=== PATIENT | male | born 1960 | race Caucasian/White ===

== ENCOUNTER 2019-01-09 14:33 | Emergency (ER) | payer OTHER ==
[2019-01-09] MEDS ORDERED: LIDOCAINE 1% MPF 5 ML VIAL ONE (15:14)
--- NOTE | 2019-01-09 16:04 | ER ---
Nurse's Notes [facility] Name: Kwan Mac Age: 58 yrs Sex: Male : 1960 Arrival Date: 01/09/2019 Time: 14:37 Bed 27 Private MD: Juanjo Sr Diagnosis: Laceration without foreign body of left index finger without damage to nail Presentation: 01/09 14:45 Presenting complaint: Patient states: I cut my left index finger with the hedger, la1 bleeding controlled. Transition of care: patient was not received from another setting of care. Onset of symptoms was January 09, 2019. Risk Assessment: Do you want to hurt yourself or someone else? Patient reports no desire to harm self or others. Initial Sepsis Screen: Does the patient meet any 2 criteria? No. Patient's initial sepsis screen is negative. Does the patient have a suspected source of infection? No. Patient's initial sepsis screen is negative. Care prior to arrival: None. 14:45 Method Of Arrival: Ambulatory la1 14:45 Acuity: HAO 4 la1 Historical: - Allergies: 14:45 No Known Allergies; la1 - PMHx: 14:45 Diabetes - NIDDM; la1 - Immunization history:: Adult Immunizations up to date. - Social history:: Smoking status: Patient/guardian denies using tobacco. - Ebola Screening: : No symptoms or risks identified at this time. Screenin:54 Abuse screen:. Abuse screen: Denies threats or abuse. Denies injuries from another. aj1 Nutritional screening: No deficits noted. Tuberculosis screening: No symptoms or risk factors identified. 16:56 Fall Risk None identified. aj1 Assessment: 14:54 General: Appears in no apparent distress. comfortable, Behavior is calm, cooperative, aj1 appropriate for age. Pain: Complains of pain in palmar aspect of distal phalanx of left index finger. Neuro: Level of Consciousness is awake, alert, obeys commands. Cardiovascular: Patient's skin is warm and dry. Respiratory: Airway is patent Respiratory effort is even, unlabored, Respiratory pattern is regular, symmetrical. GI: No signs and/or symptoms were reported involving the gastrointestinal system. : No signs and/or symptoms were reported regarding the genitourinary system. EENT: No signs and/or symptoms were reported regarding the EENT system. Derm: Skin is pink, warm \T\ dry. Musculoskeletal: No signs and/or symptoms reported regarding the musculoskeletal system. Circulation, motion, and sensation intact. Injury Description: Laceration sustained to palmar aspect of distal phalanx of left index finger a small amount of bleeding noted at this time. 15:55 Reassessment: Patient appears in no apparent distress at this time. No changes from aj1 previously documented assessment. Patient and/or family updated on plan of care and expected duration. Pain level reassessed. Patient is alert, oriented x 3, equal unlabored respirations, skin warm/dry/pink. 16:54 Reassessment: Patient appears in no apparent distress at this time. No changes from aj1 previously documented assessment. Patient and/or family updated on plan of care and expected duration. Pain level reassessed. Patient is alert, oriented x 3, equal unlabored respirations, skin warm/dry/pink. Vital Signs: 14:46 BP 150 / 100; Pulse 104; Resp 16; Temp 98.9; Pulse Ox 100% on R/A; Weight 99.79 kg; la1 Height 6 ft. 0 in. (182.88 cm); 14:46 Body Mass Index 29.84 (99.79 kg, 182.88 cm) la1 ED Course: 14:37 Patient arrived in ED. mr 14:37 Juanjo Sr MD is Private Physician. mr 14:45 Arm band placed on left wrist. la1 14:46 Triage completed. la1 14:53 Leila Cho RN is Primary Nurse. aj1 14:54 [facility] kb 14:54 Narciso Blue MD is Attending Physician. kb 14:54 Patient has correct armband on for positive identification. Bed in low position. Call aj1 light in reach. 14:54 No provider procedures requiring assistance completed. aj1 16:04 Juanjo Sr MD is Referral Physician. kb 16:56 Patient did not have IV access during this emergency room visit. aj1 Administered Medications: 16:39 Drug: Tetanus-Diphtheria Toxoid Adult 0.5 ml {[employer] Cargo Specialist: [employer]. Exp: iw 08/18/2019. Lot #: [id number]. } Route: IM; Site: left deltoid; 16:53 Follow up: Response: No adverse reaction aj1 Outcome: 16:04 Discharge ordered by . matteo 17:02 Discharged to home ambulatory. aj1 17:02 Condition: good 17:02 Discharge instructions given to patient, Instructed on discharge instructions, follow up and referral plans. wound care, Demonstrated understanding of instructions, follow-up care, wound care. 17:02 Patient left the ED. aj1 Signatures: Carol Longoria, STUDENT SERVICES DEAN-C STUDENT SERVICES DEAN-CkLeila Howe RN RN janet1 Clementina Patel Irene, RN RN Baldev Lopez, RN RN la1
--- NOTE | 2019-01-09 16:04 | EDPHYS ---
Physician Documentation [facility] Name: Kwan Mac Age: 58 yrs Sex: Male : 1960 Arrival Date: 01/09/2019 Time: 14:37 Bed 27 Private MD: Juanjo Sr ED Physician Narciso Blue HPI: 01/09 15:02 This 58 yrs old Male presents to ER via Ambulatory with complaints of Finger kb laceration. 15:02 The patient has a laceration related to: doing yard work, occurred at home, outdoors, kb and there are no complicating factors. The injury was accidental. The laceration(s) is(are) located on the palmar aspect of distal phalanx of left index finger. Onset: The symptoms/episode began/occurred just prior to arrival. Associated signs and symptoms: The patient has no apparent associated signs or symptoms. The patient has not experienced similar symptoms in the past. The patient has not recently seen a physician. Historical: - Allergies: 14:45 No Known Allergies; la1 - PMHx: 14:45 Diabetes - NIDDM; la1 - Immunization history:: Adult Immunizations up to date. - Social history:: Smoking status: Patient/guardian denies using tobacco. - Ebola Screening: : No symptoms or risks identified at this time. ROS: 15:01 Constitutional: Negative for fever, chills, and weight loss, ENT: Negative for injury, kb pain, and discharge, Neck: Negative for injury, pain, and swelling, Cardiovascular: Negative for chest pain, palpitations, and edema, Respiratory: Negative for shortness of breath, cough, wheezing, and pleuritic chest pain, Abdomen/GI: Negative for abdominal pain, nausea, vomiting, diarrhea, and constipation, MS/Extremity: Negative for injury and deformity, Neuro: Negative for headache, weakness, numbness, tingling, and seizure. 15:01 Skin: Positive for laceration(s), of the palmar aspect of distal phalanx of left index finger. Exam: 15:01 Constitutional: This is a well developed, well nourished patient who is awake, alert, kb and in no acute distress. Head/Face: Normocephalic, atraumatic. ENT: Nares patent. No nasal discharge, no septal abnormalities noted. Tympanic membranes are normal and external auditory canals are clear. Oropharynx with no redness, swelling, or masses, exudates, or evidence of obstruction, uvula midline. Mucous membranes moist. Neck: Trachea midline, no thyromegaly or masses palpated, and no cervical lymphadenopathy. Supple, full range of motion without nuchal rigidity, or vertebral point tenderness. No Meningismus. Chest/axilla: Normal chest wall appearance and motion. Nontender with no deformity. No lesions are appreciated. Cardiovascular: Regular rate and rhythm with a normal S1 and S2. No gallops, murmurs, or rubs. Normal PMI, no JVD. No pulse deficits. Respiratory: Lungs have equal breath sounds bilaterally, clear to auscultation and percussion. No rales, rhonchi or wheezes noted. No increased work of breathing, no retractions or nasal flaring. Abdomen/GI: Soft, non-tender, with normal bowel sounds. No distension or tympany. No guarding or rebound. No evidence of tenderness throughout. MS/ Extremity: Pulses equal, no cyanosis. Neurovascular intact. Full, normal range of motion. Neuro: Awake and alert, GCS 15, oriented to person, place, time, and situation. Cranial nerves II-XII grossly intact. Motor strength 5/5 in all extremities. Sensory grossly intact. Cerebellar exam normal. Normal gait. 15:01 Skin: injury, laceration(s), the wound is approximately 2 cm(s), of the palmar aspect of distal phalanx of left index finger, the second wound is approximately 1 cm(s), of the palmar aspect of distal phalanx of left index finger, that can be described as clean, no foreign body, linear, with mild bleeding. Vital Signs: 14:46 BP 150 / 100; Pulse 104; Resp 16; Temp 98.9; Pulse Ox 100% on R/A; Weight 99.79 kg; la1 Height 6 ft. 0 in. (182.88 cm); 14:46 Body Mass Index 29.84 (99.79 kg, 182.88 cm) la1 Procedures: 15:24 Nerve block: (digital) of palmar aspect of proximal phalanx of left index finger kb Medication: Lidocaine 1% without epinephrine Marcaine 0.5%, Amount: 6 mls were injected, Effect: the patient has resolution of the pain, Set up for procedure. Performed by Carol PEREZ Patient tolerated well. Laceration: 16:04 Wound Repair of 2cm ( 0.8in ) subcutaneous laceration to palmar aspect of distal kb phalanx of left index finger. Linear shaped.. Distal neuro/vascular/tendon intact. Anesthesia: Digital block administered with 1% lidocaine. Wound prep: Extensive cleansing with hibiclenz by me, Wound irrigation with saline by me. Skin closed with 4 5-0 Prolene using interrupted sutures and sterile technique. Skin closed with 3 5-0 Prolene using interrupted sutures and sterile technique. Dressed with Neosporin, tube gauze. Patient tolerated well. MDM: 14:55 Patient medically screened. kb 15:02 Data reviewed: vital signs, nurses notes. Data interpreted: Pulse oximetry: on room air kb is 100 %. Interpretation: normal. 15:46 Counseling: I had a detailed discussion with the patient and/or guardian regarding: the kb historical points, exam findings, and any diagnostic results supporting the discharge/admit diagnosis, the need for outpatient follow up, a family practitioner, to return to the emergency department if symptoms worsen or persist or if there are any questions or concerns that arise at home. 01/09 14:59 Order name: Prolene, Sutures; Complete Time: 16:53 kb 01/09 14:59 Order name: Dressing - Wound; Complete Time: 16:53 kb 01/09 14:59 Order name: Gloves, Sterile; Complete Time: 15:13 kb 01/09 14:59 Order name: Setup Suture Tray; Complete Time: 15:13 kb Administered Medications: 16:39 Drug: Tetanus-Diphtheria Toxoid Adult 0.5 ml {[employer]: [employer]. Exp: iw 08/18/2019. Lot #: [id number]. } Route: IM; Site: left deltoid; 16:53 Follow up: Response: No adverse reaction aj1 Disposition: 01/10 07:13 Co-signature as Attending Physician, Narciso Blue MD I agree with the assessment and kdr plan of care. Disposition: 01/09/19 16:04 Discharged to Home. Impression: Laceration without foreign body of left index finger without damage to nail. - Condition is Stable. - Discharge Instructions: Laceration Care, Adult, [id number]. - Medication Reconciliation Form, Thank You Letter, Antibiotic Education, Prescription Opioid Use form. - Follow up: Emergency Department; When: As needed; Reason: Worsening of condition. Follow up: Juanjo [place]; When: 2 - 3 days; Reason: Recheck today's complaints, Continuance of care, Re-evaluation by your physician. - Notes: Have sutures removed in 10-14 days Keep clean and dry Signatures: Carol Longoria, NELLY-C PARKING TECHNICIAN-Ckb Leila Cho RN RN aj1 Narciso Blue MD MD kdr Maryann Vasques RN RN iw Baldev Lopez RN RN la1 Corrections: (The following items were deleted from the chart) 01/09 16:06 15:01 Skin: injury, laceration(s), the wound is approximately 1.5 cm(s), of the palmar kb aspect of distal phalanx of left index finger, the second wound is approximately 1 cm(s), of the palmar aspect of distal phalanx of left index finger, that can be described as clean, no foreign body, linear, with mild bleeding, kb 17:02 16:04 01/09/2019 16:04 Discharged to Home. Impression: Laceration without foreign body aj1 of left index finger without damage to nail. Condition is Stable. Discharge Instructions: Laceration Care, Adult, [id number]. Forms are Medication Reconciliation Form, Thank You Letter, Antibiotic Education, Prescription Opioid Use. Follow up: Emergency Department; When: As needed; Reason: Worsening of condition. Follow up: Juanjo [place]; When: 2 - 3 days; Reason: Recheck today's complaints, Continuance of care, Re-evaluation by your physician. kb
[2019-01-09] MEDS ORDERED: TETANUS & DIPHTHERIA TOX,ADULT 0.5 ML VIAL ONE (16:36)
[2019-01-09 18:48] VITALS: BP 150/100; TEMP 98.9; O2SAT 100
== END 2019-01-09 17:02 | disposition home or self-care (01) ==
LOC: ER 14:33
DX: S61.211A Laceration without foreign body of left index finger without damage to nail, initial encounter (principal); W45.8XXA Other foreign body or object entering through skin, initial encounter; Y93.H2 Activity, gardening and landscaping; Y92.007 Garden or yard of unspecified non-institutional (private) residence as the place of occurrence of the external cause; E11.9 Type 2 diabetes mellitus without complications; Z23 Encounter for immunization
CPT/HCPCS: 64450; 90471; 90714; 99283